=== PATIENT | female | born 1975 | race African-American/Black ===

== ENCOUNTER 2023-08-30 12:24 | Emergency (ER) | payer MEDICAID ==
[~2023-08-30] VITALS: Ht 167.6 cm; Wt 100.0 kg
[~2023-08-30 12:24] MED LIST: NAPR275T96 MT
[2023-08-30 12:33] VITALS: O2SAT 100
[2023-08-30 13:05] LABS: BASOPHILS % 0.9 % (0.0-2.0); EOSINOPHILS % 2.8 % (0.0-5.0); HEMATOCRIT. 38.9 % (36.0-48.0); HEMOGLOBIN. 13.2 g/dL (12.0-16.0); LYMPHOCYTES % 30.2 % (20.0-50.0); MEAN CORPUSCULAR HEMOGLOBIN 29.2 pg (28.0-32.0); MEAN CORPUSCULAR HGB CONC 33.9 g/dL (31.0-37.0); MEAN CORPUSCULAR VOLUME 86.1 fL (81.0-99.0); MEAN PLATELET VOLUME 8.5 fl (7.4-10.4); MONOCYTES % 6.7 % (2.0-8.0); NEUTROPHILS % 59.4 % (40.0-76.0); PLATELET 401 x1000/uL (130-400); RED BLOOD CELL COUNT 4.52 mill/uL (4.2-5.4); RED CELL DISTRIBUTION WIDTH 14.2 % (11.6-14.6); WHITE BLOOD COUNT 10.4 x1000/uL (4.5-11.0)
[2023-08-30 13:12] LABS: CHLORIDE 105 mEq/L (98-107); SODIUM 137 mEq/L (136-145)
[2023-08-30 13:13] LABS: CARBON DIOXIDE 26 mEq/L (21-32)
[2023-08-30 13:18] LABS: CREATININE 0.9 mg/dL (0.6-1.0); GLUCOSE 88 mg/dL (70-105); UREA NITROGEN BLOOD 6 mg/dL (9-23)
[2023-08-30 13:22] LABS: TROPONIN I HIGH SENSITIVITY < 4 ng/L (3.0-34)
[2023-08-30] MEDS: HYDROXYZINE 25MG TABLET PO ONE (15:04)
[2023-08-30] MEDS: KETOROLAC 30MG/ML VIAL IM ONE (15:04)
[2023-08-30] MEDS ORDERED: DICYCLOMINE 10 MG/5 ML ORAL SYR PO ONE (15:45)
[2023-08-30] MEDS: DICYCLOMINE HCL 10MG CAPSULE PO NR (16:02)
[2023-08-30] MEDS: MAGNESIUM/ALUMINUM HYDROXIDE/SIMETHICONE 30ML UDC PO ONE (16:02)
[2023-08-30 16:45] VITALS: BP 147/85; PULSE 60; RESP 17; TEMP 98
== END 2023-08-30 17:18 | disposition home or self-care (01) ==
LOC: ER 12:34
DX: R07.89 Other chest pain (principal)
CPT/HCPCS: 99285; 71045; 80048; 81025; 85025; 84484; 36415; 93005; 96372; J1885

== ENCOUNTER 2023-09-01 05:03 | Emergency (ER) | payer MEDICAID ==
[~2023-09-01] VITALS: Ht 165.1 cm; Wt 82.0 kg
[2023-09-01 05:06] VITALS: O2SAT 98
[2023-09-01 05:50] LABS: BASOPHILS % 0.8 % (0.0-2.0); EOSINOPHILS % 2.9 % (0.0-5.0); HEMATOCRIT. 35.9 % (36.0-48.0); HEMOGLOBIN. 12.2 g/dL (12.0-16.0); LYMPHOCYTES % 26.8 % (20.0-50.0); MEAN CORPUSCULAR HEMOGLOBIN 29.6 pg (28.0-32.0); MEAN PLATELET VOLUME 8.5 fl (7.4-10.4); MONOCYTES % 5.5 % (2.0-8.0); PLATELET 382 x1000/uL (130-400); RED BLOOD CELL COUNT 4.13 mill/uL (4.2-5.4); RED CELL DISTRIBUTION WIDTH 14.5 % (11.6-14.6); WHITE BLOOD COUNT 10.5 x1000/uL (4.5-11.0)
[2023-09-01 05:56] LABS: CHLORIDE 105 mEq/L (98-107); POTASSIUM 3.6 mEq/L (3.5-5.1); SODIUM 139 mEq/L (136-145)
[2023-09-01 05:57] LABS: CALCIUM 10.3 mg/dL (8.7-10.4); CARBON DIOXIDE 27 mEq/L (21-32)
[2023-09-01 06:02] LABS: CREATININE 0.8 mg/dL (0.6-1.0); GLUCOSE 111 mg/dL (70-105); UREA NITROGEN BLOOD 9 mg/dL (9-23)
[2023-09-01 06:19] LABS: TROPONIN I HIGH SENSITIVITY < 4 ng/L (3.0-34)
[2023-09-01 07:51] VITALS: BP 133/73; PULSE 76; RESP 16; TEMP 98.5
== END 2023-09-01 09:21 | disposition home or self-care (01) ==
LOC: ER 05:03
DX: R07.9 Chest pain, unspecified (principal); J45.909 Unspecified asthma, uncomplicated; K21.9 Gastro-esophageal reflux disease without esophagitis; F12.90 Cannabis use, unspecified, uncomplicated; Z98.890 Other specified postprocedural states
CPT/HCPCS: 36415; 71045; 80048; 84484; 85025; 99284